=== PATIENT | female | born 1980 | race Caucasian/White ===

== ENCOUNTER 2025-03-10 07:36 | Inpatient (IN) | payer OTHER ==
[~2025-03-10] VITALS: Ht 167.6 cm; Wt 126.6 kg
[2025-03-10 07:40] VITALS: O2SAT 98
[2025-03-10] MEDS: ONDANSETRON HCL 4MG/2ML INJ IV ONE (07:50)
[2025-03-10] MEDS: SODIUM CHLORIDE 0.9% 1,000 ML IV ONE (08:15)
[2025-03-10 08:41] LABS: CREATININE 1.0 mg/dL (0.6-1.0); UREA NITROGEN BLOOD 8 mg/dL (9-23)
[2025-03-10 08:42] LABS: ETHANOL BLOOD < 10 mg/dL (<10)
[2025-03-10 09:01] LABS: BASOPHILS % 0.2 % (0.0-2.0); EOSINOPHILS % 0.2 % (0.0-5.0); HEMATOCRIT. 37.6 % (36.0-48.0); HEMOGLOBIN. 12.2 g/dL (12.0-16.0); LYMPHOCYTES % 8.7 % (20.0-50.0); MEAN PLATELET VOLUME 9.1 fl (7.4-10.4); MONOCYTES % 4.2 % (2.0-8.0); NEUTROPHILS % 86.7 % (40.0-76.0); PLATELET 250 x1000/uL (130-400); RED BLOOD CELL COUNT 4.54 mill/uL (4.2-5.4); RED CELL DISTRIBUTION WIDTH 14.9 % (11.6-14.6)
[2025-03-10] MEDS: POTASSIUM CHLORIDE 20MEQ/PACKET PO ONE (09:31)
[2025-03-10 10:23] LABS: CLARITY URINE CLEAR (CLEAR); COLOR URINE YELLOW (YELLOW); GLUCOSE URINE NEGATIVE (NEGATIVE); KETONES URINE 2+ (NEGATIVE); LEUKOCYTE ESTERASE URINE NEGATIVE (NEGATIVE); NITRITE URINE NEGATIVE (NEGATIVE); OCCULT BLOOD URINE NEGATIVE (NEGATIVE); PH URINE 8.0 (4.5-8.0); PROTEIN URINE TRACE (NEGATIVE); SPECIFIC GRAVITY URINE 1.019 (1.005-1.030); UROBILINOGEN URINE 0.2 E.U./dL (0.2-1.0)
[2025-03-10 10:40] LABS: *AMPHETAMINES SCREEN URINE NEGATIVE (NEGATIVE); *BARBITURATES SCREEN URINE NEGATIVE (NEGATIVE); *BENZODIAZEPINES SCREEN URINE NEGATIVE (NEGATIVE); *COCAINE SCREEN URINE NEGATIVE (NEGATIVE); CANNABINOID URINE SCREEN PRESUMPTIVE POSITIVE (NEGATIVE); ECSTASY MDMA SCREEN URINE NEGATIVE (NEGATIVE); METHADONE URINE SCREEN NEGATIVE (NEGATIVE); OPIATES URINE SCREEN NEGATIVE (NEGATIVE); PHENCYCLIDINE URINE SCREEN NEGATIVE (NEGATIVE)
[2025-03-10 10:48] LABS: SQUAMOUS EPITHELIAL CELL URINE 2+ /lpf (RARE/1+)
[2025-03-10 10:49] LABS: BACTERIA URINE 1+
[2025-03-10 10:50] LABS: WBC URINE 0-2 /hpf (0-2)
[2025-03-10 10:51] LABS: RBC URINE NONE SEEN /hpf (0-2)
[2025-03-10] MEDS ORDERED: DEXTROSE 50% WATER 50ML SYRINGE IV PRN (11:15)
[2025-03-10] MEDS ORDERED: ONDANSETRON HCL 4MG/2ML INJ IV PRN (11:15)
[2025-03-10] MEDS ORDERED: MAGNESIUM/ALUMINUM HYDROXIDE/SIMETHICONE 30ML UDC PO PRN (11:15)
[2025-03-10] MEDS ORDERED: ZOLPIDEM TARTRATE 5MG TABLET PO PRN (11:15)
[2025-03-10] MEDS ORDERED: NALOXONE HCL 0.4MG/ML VIAL IV PRN (11:15)
[2025-03-10] MEDS ORDERED: CLONIDINE 0.1MG TABLET PO PRN (11:15)
[2025-03-10] MEDS ORDERED: ACETAMINOPHEN 325MG TABLET PO PRN (11:15)
[2025-03-10] MEDS ORDERED: MORPHINE SULFATE 2 MG/ML INJ (NOT FOR IM USE) IV PRN (11:15)
[2025-03-10 12:31] VITALS: BP 114/50; PULSE 78; RESP 18; TEMP 36.696
[2025-03-10] MEDS: INSULIN LISPRO 100 UNITS/ML SUBCUT SCH (12:34)
[2025-03-10] MEDS: HYDROCODONE/ACETAMINOPHEN 5/325MG TABLET PO PRN (13:13)
[2025-03-10] MEDS: BLOOD SUGAR DIAGNOSTIC STRIP TEST SCH (13:20)
[2025-03-10] MEDS ORDERED: INFLUENZA VACCINE 05/PF 0.5 ML SYRINGE IM ONE (13:45)
[2025-03-10 16:00] VITALS: BP 116/62; PULSE 62; RESP 15; TEMP 36.3; O2SAT 100
[2025-03-10 20:00] VITALS: BP 116/62; PULSE 82; RESP 17; TEMP 36.6; O2SAT 98
[2025-03-10] MEDS: ENOXAPARIN 40MG/0.4ML SYR SUBCUT SCH (21:00)
[2025-03-11] VITALS: BP 106/63; PULSE 87; RESP 18; TEMP 36.6; O2SAT 96
[2025-03-11 00:31] LABS: TROPONIN I HIGH SENSITIVITY 5 ng/L (3.0-34)
[2025-03-11 04:00] VITALS: BP 115/61; PULSE 92; RESP 18; TEMP 36.8; O2SAT 99
[2025-03-11 07:44] LABS: BASOPHILS % 0.6 % (0.0-2.0); EOSINOPHILS % 0.9 % (0.0-5.0); HEMATOCRIT. 37.3 % (36.0-48.0); HEMOGLOBIN. 12.1 g/dL (12.0-16.0); LYMPHOCYTES % 22.1 % (20.0-50.0); MEAN PLATELET VOLUME 9.2 fl (7.4-10.4); MONOCYTES % 6.2 % (2.0-8.0); NEUTROPHILS % 70.2 % (40.0-76.0); PLATELET 247 x1000/uL (130-400); RED BLOOD CELL COUNT 4.47 mill/uL (4.2-5.4); RED CELL DISTRIBUTION WIDTH 15.1 % (11.6-14.6)
[2025-03-11 07:56] LABS: CREATININE 0.9 mg/dL (0.6-1.0); UREA NITROGEN BLOOD < 5 mg/dL (9-23)
[2025-03-11 08:00] VITALS: BP 99/64; PULSE 56; RESP 16; TEMP 36.4; O2SAT 100
[2025-03-11] MEDS: PANTOPRAZOLE SODIUM 40 MG/VIAL IV SCH (09:00)
[2025-03-11 11:51] LABS: TROPONIN I HIGH SENSITIVITY < 4 ng/L (3.0-34)
[2025-03-11 12:00] VITALS: BP 88/42; PULSE 68; RESP 16; TEMP 36.2; O2SAT 98
[2025-03-11 12:25] LABS: HEPATITIS C AB NON REACTIVE (Neg) (Negative)
[2025-03-11] MEDS: LORAZEPAM 2MG/ML UD SYRINGE IV ONE (15:12)
[2025-03-11] MEDS: LORAZEPAM 2MG/ML UD SYRINGE IV NR (15:15)
[2025-03-11 16:01] VITALS: PULSE 86
[2025-03-11 20:00] VITALS: BP 90/57; PULSE 88; RESP 18; TEMP 36.7; O2SAT 94
[2025-03-12] VITALS: BP 99/45; PULSE 82; RESP 18; TEMP 37.2; O2SAT 96
[2025-03-12 04:00] VITALS: BP 100/50; PULSE 79; RESP 18; TEMP 36.7; O2SAT 96
[2025-03-12 08:00] VITALS: BP 112/71; PULSE 68; RESP 15; TEMP 36.6; O2SAT 98
[2025-03-12 08:09] LABS: BASOPHILS % 0.5 % (0.0-2.0); EOSINOPHILS % 1.6 % (0.0-5.0); HEMATOCRIT. 36.8 % (36.0-48.0); HEMOGLOBIN. 11.8 g/dL (12.0-16.0); LYMPHOCYTES % 27.5 % (20.0-50.0); MEAN PLATELET VOLUME 9.4 fl (7.4-10.4); MONOCYTES % 7.2 % (2.0-8.0); NEUTROPHILS % 63.2 % (40.0-76.0); PLATELET 218 x1000/uL (130-400); RED BLOOD CELL COUNT 4.39 mill/uL (4.2-5.4); RED CELL DISTRIBUTION WIDTH 15.2 % (11.6-14.6)
[2025-03-12 08:34] LABS: CREATININE 0.8 mg/dL (0.6-1.0)
[2025-03-12 08:35] LABS: UREA NITROGEN BLOOD 6 mg/dL (9-23)
[2025-03-12] MEDS ORDERED: ONDA4TAB50 MT (10:35)
[2025-03-12 12:00] VITALS: BP 120/72; PULSE 65; RESP 18; TEMP 36.2; O2SAT 100
[2025-03-12 15:33] VITALS: BP 120/73; PULSE 93; RESP 18; TEMP 97.5
== END 2025-03-12 16:10 | disposition home or self-care (01) | DRG 101 ==
LOC: EDBD 07:36 → ER 07:36 → 5WST 11:05 → EDBEDREQTM 11:07 → EDBEDREQ 11:07
PROVIDERS: ADMIT Internal Medicine; ATTEND Internal Medicine
DX: R56.9 Unspecified convulsions (principal); E87.20 Acidosis, unspecified; E87.6 Hypokalemia; D72.829 Elevated white blood cell count, unspecified; E11.9 Type 2 diabetes mellitus without complications; G43.909 Migraine, unspecified, not intractable, without status migrainosus
CPT/HCPCS: 36415; 70551; 80048; 80305; 80320; 81003; 82962; 84443; 84484; 85025; 86705; 87340; 90686; 93005; 93970; 99285; J1650; J2060; J2405; J2470; J7030; G0480